=== PATIENT | female | born 1950 | race African-American/Black ===

== ENCOUNTER → 2019-02-09 | Outpatient (CLI) | payer MEDICARE, OTHER ==
[2015-01-12 13:10] VITALS: BP 122/72
[~2019-02-09] MED LIST: CONTRAST GIVEN. MC PRN; IOHEXOL 240 MG/ML 50ML VIAL. PO ONE; IOHEXOL 300 MG/ML 100ML VIAL. IV ONE
--- NOTE | 2019-02-09 12:12 | KCIC ---
EXAM: Abdomen and pelvis CT with intravenous contrast. HISTORY: Right lower quadrant and groin pain. TECHNIQUE: Computed tomographic images of the abdomen and pelvis were obtained following the administration of 100 cc of Omnipaque 300 intravenous contrast. Multiplanar reformatting was performed. *One or more of the following individualized dose reduction techniques were utilized for this examination: 1. Automated exposure control. 2. Adjustment of the mA and/or kV according to patient size. 3. Use of iterative reconstruction technique. COMPARISON: None. FINDINGS: Evaluation of the lower thorax is unremarkable. No suspicious hepatic lesion is seen. The gallbladder, pancreas, spleen and adrenal glands are unremarkable. There is a suspected small right extrarenal pelvis and 5 mm cyst within the lower pole the right kidney. There is no appendicitis. There is no bowel obstruction. There is moderate colonic stool. There is no abnormal bowel wall thickening. There is suspected fibroid within the uterine fundus measuring 2.4 cm. There is incidental left ovarian or paraovarian calcification. There are few pelvic phleboliths. There is no lymphadenopathy. There is no suspicious osseous lesion. IMPRESSION: No acute abdominal or pelvic finding. Electronically signed by: Taylor Tran MD (02/09/2019 12:09 PM) [place] [id number]
== END | disposition home or self-care (01) ==
LOC: KCIC CT 07:59
PROVIDERS: ATTEND Family Medicine
DX: N28.1 Cyst of kidney, acquired (principal); I87.8 Other specified disorders of veins; I10 Essential (primary) hypertension; J45.909 Unspecified asthma, uncomplicated
CPT/HCPCS: 74177; 82565; Q9966; Q9967

== ENCOUNTER → 2019-05-11 | Day surgery (SDC) | payer MEDICARE, OTHER ==
[~2019-05-11] MED LIST changes: +ACET500T68 PO; +ATOR20TA58 PO; -CONTRAST GIVEN. MC PRN; -IOHEXOL 240 MG/ML 50ML VIAL. PO ONE; -IOHEXOL 300 MG/ML 100ML VIAL. IV ONE; +IV RINGERS,LACTATED 1000ML 1,000 ML IV SCH; +LISI10TA2 PO; +PROPOFOL 20 ML IV ONE
[2019-05-11 13:38] VITALS: BP 168/80
== END ==
LOC: ENDOS 12:02
PROVIDERS: ATTEND Internal Medicine Gastroenterology
DX: R13.10 Dysphagia, unspecified (principal); K22.2 Esophageal obstruction; I10 Essential (primary) hypertension; E78.5 Hyperlipidemia, unspecified; E66.01 Morbid (severe) obesity due to excess calories; J45.909 Unspecified asthma, uncomplicated; M19.90 Unspecified osteoarthritis, unspecified site; Z79.899 Other long term (current) drug therapy; Z98.890 Other specified postprocedural states
CPT/HCPCS: 43450; J2704